=== PATIENT | female | born 1970 | race Caucasian/White ===

== ENCOUNTER → 2018-10-09 | Day surgery (SDC) | payer BC ==
[2018-10-06 14:09] LABS: BASOPHILS # (AUTO) 0.1 (0.0-0.1); BASOPHILS % 1.1 % (0.0-1.0); EOSINOPHILS # (AUTO) 0.2 (0.0-0.4); EOSINOPHILS % 2.7 % (0.0-6.0); HEMATOCRIT 41.6 % (34.2-44.1); HEMOGLOBIN 13.7 g/dL (12.0-16.0); LYMPHOCYTES # (AUTO) 2.1 (1.0-3.2); LYMPHOCYTES % 37.5 % (18.0-39.1); MEAN CORPUSCULAR HEMOGLOBIN 29.4 pg (28-32); MEAN CORPUSCULAR HGB CONC 32.9 g/dL (31-35); MEAN CORPUSCULAR VOLUME 89.3 fL (81-99); MONOCYTES # (AUTO) 0.4 (0.2-0.8); MONOCYTES % 6.5 % (4.4-11.3); NEUTROPHILS # (AUTO) 2.9 (2.1-6.9); PLATELET COUNT 334 x10e3/uL (140-360); RED BLOOD COUNT 4.66 x10e6/uL (3.6-5.1); RED CELL DISTRIBUTION WIDTH 12.6 % (11.7-14.4)
[2018-10-06 14:32] LABS: ANION GAP 11.4 mmol/L (8-16); BLOOD UREA NITROGEN 10 mg/dL (7-26); BUN/CREATININE RATIO 14 (6-25); CALCIUM 9.7 mg/dL (8.4-10.2); CARBON DIOXIDE 28 mmol/L (22-29); CHLORIDE 101 mmol/L (98-107); CREATININE, SERUM 0.74 mg/dL (0.57-1.11); EST GLOMERULAR FILTRATION RATE > 60 ML/MIN (60-); GLUCOSE 124 mg/dL (74-118); POTASSIUM 3.4 mmol/L (3.5-5.1); SODIUM 137 mmol/L (136-145)
--- NOTE | 2018-10-06 15:54 | Diagnostic Imaging Report ---
EXAMINATION: CHEST 2 VIEWS INDICATION: Pre-operative COMPARISON: None FINDINGS: LINES/TUBES:None LUNGS:The lungs are well-inflated. No focal consolidation or pulmonary edema. Mild biapical pleural parenchymal thickening/scarring. PLEURA:No pleural effusion or pneumothorax. MEDIASTINUM:The cardiomediastinal silhouette appears normal in size and shape. BONES/SOFT TISSUES:No acute osseous injury. ABDOMEN:No free air under the diaphragm. IMPRESSION: No focal pneumonia or pulmonary edema. Signed by: Ronaldo Hoffman MD on 10/06/2018 3:50 PM
[~2018-10-09] MED LIST: ACETAMINOPHEN 1000 MG/100 ML 100 ML IV ONE; BUPIVACAINE HCL 0.5% INJ 30 ML VIAL INJ ONE; CEFAZOLIN SOD 1 GM/NS 50ML 100 ML IV ONE; DEXAMETHASONE SOD PHOS INJ 4 MG/ML VIAL ONE; FENTANYL CITRATE/PF 100MCG/2 ML INJ ONE; HYDROCODONE/APAP 5MG-325MG TAB ONE; KETOROLAC TROMETHAMINE 30 MG/ML VIAL ONE; LIDOCAINE HCL 1% 2 ML AMP ONE; LIDOCAINE HCL 2% 2 ML AMP ONE; LIDOCAINE HCL 2% LOCAL INJ 5 ML SDV VIAL INJ ONE; MIDAZOLAM HCL 2 MG/2 ML VIAL ONE; NATURE-THROID65 MG PO; NEOSTIGMINE 1 MG/ML 10ML VIAL ONE; ONDANSETRON HCL INJ 2MG/ML 2ML 2 MG/ML VIAL ONE; PROPOFOL IV EMULSION 10 MG/ML 20 ML VIAL ONE; SEVOFLURANE INHAL SOLN 250 ML PEN BTL ONE
--- OUTSIDE RECORDS SUMMARY | 2018-10-09 05:31 | XMS REPORT | Clinical Summary ---
Author Author [facility] Organization [facility] Address Unknown Phone Unavailable Care Team Providers Care Computer Engineering Technologist Name Role Phone Dinh Tan MD PCP Allergies Comments Active Allergy Reactions Severity Noted Date Liquid bandaid---Blisters Bacitracin Zinc-Polymyxin 07/25/2016 B flushing Sulfur Itching 07/25/2016 Medications No known medications Active Problems Not on file Family History Medical History Relation Name Comments Heart disease Father Relation Name Status Comments Father Alive Social History Date Tobacco Use Types Packs/Day Years Used Quit: 1994 Former Smoker Cigarettes Alcohol Use Drinks/Week oz/Week Comments No Sex Assigned at Date Recorded Not on file Industry Job Start Date Occupation Not on file Not on file Not on file Travel End Travel History Travel Start No recent travel history available. Last Filed Vital Signs Not on file Plan of Treatment Health Maintenance Due Date Last Done Comments BREAST CANCER SCREENING 01/06/2018 COLONOSCOPY SCREENING 01/06/2018 SHINGLES VACCINES (#1) 01/06/2018 INFLUENZA VACCINE 09/24/2018 Results Not on fileafter 10/08/2017 Insurance Type Payer Benefit Subscriber ID Effective Phone Address Plan / Dates Group PPO BCBS BCBS xxxxxxxxxxxx 2006-P CHOICE resent PPO/[employer] PPO (Home) [place] [address] Advance Directives Patient has advance care planning documents on file. For more information, yordan rangel contact: Reyna Islam [address] [place] [id number]
--- OUTSIDE RECORDS SUMMARY | 2018-10-09 05:31 | XMS REPORT ---
Author Author [facility] Address Unknown Phone Unavailable Care Team Providers Care Grass Farmer Name Role Phone ELI CASTELAN Unavailable Unavailable Elliot HERZOG Unavailable Unavailable Problems This patient has no known problems. Allergies, Adverse Reactions, Alerts This patient has no known allergies or adverse reactions. Medications This patient has no known medications. Results Test Description Test Time Test Comments Text Results Atomic Results Result Comments CHEST 2 VIEWS 2018-10-06 15:50:00 [place] [address] Patient Name: ALESSANDRO LEVIN MR #: [id number] : 1970 Age/Sex: 48/F Req #: [id number] Adm Physician: Ordered by: ELI CASTELAN DPM Report #: [id number] Location: OR Room/Bed: Procedure: [id number] DX/CHEST 2 VIEWS Exam Date: 10/06/18 Exam Time: 1405 REPORT STATUS: Signed EXAMINATION: CHEST 2 VIEWS INDICATION: Pre-operative COMPARISON: None FINDINGS: LINES/TUBES:None LUNGS:The lungs are well-inflated. No focal consolidation or pulmonary edema. Mild biapical pleural parenchymal thickening/scarring. PLEURA:No pleural effusion or pneumothorax. MEDIASTINUM:The cardiomediastinal silhouette appears normal in size and shape. BONES/SOFT TISSUES:No acute osseous injury. ABDOMEN:No free air under the diaphragm. IMPRESSION: No focal pneumonia or pulmonary edema. Signed by: Marco Hillman MD on 10/06/2018 3:50 PM Dictated By: MARCO HILLMAN MD 49 Transcribed By: DUSTIN on 10/06/181549 COPY TO: ELI CASTELAN DPFrannie MAMMOGRAPHY DIGITAL SCR BILAT 2017-11-05 13:15:00 [facility] [address] [place] [address] Patient Name: ALESSANDRO LEVIN MR #: [id number] : 1970 Age/Sex: 47/F Req #: [id number] Adm Physician: Ordered by: MANISH HERZOG M.D. Report #: [id number] Location: MAMMO Room/Bed: Procedure: [id number] MG/MAMMOGRAPHY DIGITAL SCR BILAT Exam Date: 11/05/17 Exam Time: 1036 REPORT STATUS: Signed #[id number] - [id number] #BILATERAL DIGITAL SCREENING MAMMOGRAM WITH CAD: 11/05/2017 CLINICAL: Routine screening. Comparison is made to exams dated: 08/26/2016 mammogram, 06/13/2015 mammogram and 05/31/2015 mammogram - [facility]. Current study contains 5 films. The tissue of both breasts is heterogeneously dense. This may lower the sensitivity of mammography. Current study was also evaluated with a Computer Aided Detection (CAD) system. There are benign calcifications in both breasts. There also is a benign cyst in the left breast in upper outer aspect that now measures 1.4 cm (previously measured 3.7 cm) and was confirmed on a prior ultrasound to represent a benign cyst. No significant masses, calcifications, or other findings are seen in either breast. There has been no significant interval change. IMPRESSION: BENIGN There is no mammographic evidence of malignancy. A 1 year screening mammogram is recommended. The patient will be notified by letter of the results. Kavita Reyna Jr., D.O. cw/:11/12/2017 08:58:01 Body Piercer: Flor COBIAN)(Frannie), [facility] letter sent: Compared to Prior B9 Mammogram BI-RADS: 2 Benign Dictated By: KAVITA REYNA DO 7 Transcribed By: OMAYRA on 11/12/17857 COPY TO: MANISH HERZOG M.D.
[2018-10-09 10:50] VITALS: BP 129/91
--- NOTE | 2018-10-09 18:14 | Operative Report ---
DATE OF PROCEDURE: 10/09/2018 SURGEON: Armando Gotti DPM PREOPERATIVE DIAGNOSES: 1. Partially ruptured anterior talofibular ligament, left foot. 2. Partially ruptured peroneal tendon, left foot. 3. 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 POSTOPERATIVE DIAGNOSES: 1. Partially ruptured anterior talofibular ligament, left foot. 2. Partially ruptured peroneal tendon, left foot. 3. 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 TITLE OF THE OPERATION: 1. Repair of the anterior talofibular ligament of the left foot. 2. Repair of the peroneal tendon, left foot. 3. Kenalog injection, 3rd and 4th intermetatarsal spaces of the right foot. ANESTHESIA: General endotracheal. HEMOSTASIS: A left and right thigh tourniquet at 350 mmHg. PROCEDURE IN DETAIL: The patient was taken to the operating room in a mildly sedated state and placed on the operating table in supine position. Following induction of general anesthetic, the left lower extremity was elevated to 60 degrees to exsanguinate before inflating the pneumatic thigh tourniquet to 350 mmHg to create hemostasis. Left lower extremity was placed on the operating table prior to performing following procedure: Procedure #1 is repair of the anterior talofibular ligament of the left foot. A transverse distal incision was placed overlying the anterior talofibular ligament. The segment of rupture was identified. A transverse ligament repair was performed flapping the ligament anteriorward and a Mitek absorbable anchor was installed into the distal fibula. This was then used to create a repair using #2 FiberWire of the ruptured and reapproximated ligament edges, all dystrophic ligament was discarded. The area was irrigated and closed with 3-0 Vicryl, 4-0 nylon. The 2nd incision was then placed for repair of the ruptured peroneal tendon, this was just posterior to the lateral malleolus. The incision was deepened via sharp and blunt dissection down to the retinaculum of the peroneal tendon group. The brevis tendon was identified and the ruptured flattened area was identified, sectioned, and repaired with #2 FiberWire. The area was once again irrigated. A human tissue allograft was placed and injectable form overlying the two repaired areas. A tendon closure of the tendon sheath with 3-0 Vicryl was performed, 4-0 Vicryl subcutaneously on both wounds and 4-0 nylon. The areas of surgery were then blocked with 0.5 Marcaine. No steroid was used. The release of the pneumatic thigh tourniquet showed normal hyperemic flush to all digits of the left foot and the appropriate mildly compressive dressings were applied including application of posterior splint to stabilize the position. The patient tolerated the procedure well and is to return to see me within one week postoperatively. Attention was then directed to the right foot, where the 3rd and 4th intermetatarsal spaces were noted preoperatively to be inflamed from neuroma structures. No tourniquet was used. Both 3rd and 4th intermetatarsal spaces were injected with Kenalog and local. The patient tolerated the procedure well and the appropriate mildly compressive dressing was applied. The patient left the operating room, vital signs stable in apparent satisfactory condition, having tolerated both anesthetic and procedure very well. Return to see me within one week postoperatively. NATALIYA Mata/NIRANJAN /[id number]
== END | disposition home or self-care (01) ==
LOC: OR 05:28
PROVIDERS: ATTEND Podiatrist Foot Surgery
DX: S93.492A Sprain of other ligament of left ankle, initial encounter (principal); S86.312A Strain of muscle(s) and tendon(s) of peroneal muscle group at lower leg level, left leg, initial encounter; G57.61 Lesion of plantar nerve, right lower limb; E03.9 Hypothyroidism, unspecified; X58.XXXA Exposure to other specified factors, initial encounter; Z88.2 Allergy status to sulfonamides; Z01.810 Encounter for preprocedural cardiovascular examination; Z01.812 Encounter for preprocedural laboratory examination; Z01.818 Encounter for other preprocedural examination
CPT/HCPCS: 27696; 36415; 64455; 71046; 80048; 85025; 93005; C1713; J0131; J0690; J1100; J1885; J2001 ×2; J2250; J2405; J2704; J2710; J3010; Q4100; 76000

== ENCOUNTER 2019-09-13 10:50 | Emergency (ER) | payer BC ==
[~2019-09-13] VITALS: Ht 157.5 cm; Wt 59.0 kg
[~2019-09-13 10:50] MED LIST changes: -ACETAMINOPHEN 1000 MG/100 ML 100 ML IV ONE; -BUPIVACAINE HCL 0.5% INJ 30 ML VIAL INJ ONE; -CEFAZOLIN SOD 1 GM/NS 50ML 100 ML IV ONE; -DEXAMETHASONE SOD PHOS INJ 4 MG/ML VIAL ONE; -FENTANYL CITRATE/PF 100MCG/2 ML INJ ONE; -HYDROCODONE/APAP 5MG-325MG TAB ONE; -KETOROLAC TROMETHAMINE 30 MG/ML VIAL ONE; -LIDOCAINE HCL 1% 2 ML AMP ONE; -LIDOCAINE HCL 2% 2 ML AMP ONE; -LIDOCAINE HCL 2% LOCAL INJ 5 ML SDV VIAL INJ ONE; -MIDAZOLAM HCL 2 MG/2 ML VIAL ONE; -NEOSTIGMINE 1 MG/ML 10ML VIAL ONE; -ONDANSETRON HCL INJ 2MG/ML 2ML 2 MG/ML VIAL ONE; -PROPOFOL IV EMULSION 10 MG/ML 20 ML VIAL ONE; -SEVOFLURANE INHAL SOLN 250 ML PEN BTL ONE
[2019-09-13] MEDS ORDERED: NITROGLYCERIN 2% OINT 1 GM PKT TOP STA (11:20)
[2019-09-13] MEDS ORDERED: ASPIRIN 81 MG CHEW TAB PO STA (11:20)
[2019-09-13 11:28] LABS: BASOPHILS # (AUTO) 0.1 (0.0-0.1); BASOPHILS % 1.1 % (0.0-1.0); EOSINOPHILS # (AUTO) 0.3 (0.0-0.4); EOSINOPHILS % 3.4 % (0.0-6.0); HEMATOCRIT 38.9 % (34.2-44.1); HEMOGLOBIN 12.8 g/dL (12.0-16.0); LYMPHOCYTES # (AUTO) 2.5 (1.0-3.2); LYMPHOCYTES % 34.4 % (18.0-39.1); MEAN CORPUSCULAR HEMOGLOBIN 29.2 pg (28-32); MEAN CORPUSCULAR HGB CONC 32.9 g/dL (31-35); MEAN CORPUSCULAR VOLUME 88.6 fL (81-99); MONOCYTES # (AUTO) 0.5 (0.2-0.8); MONOCYTES % 7.2 % (4.4-11.3); NEUTROPHILS # (AUTO) 3.9 (2.1-6.9); NEUTROPHILS % 53.6 % (38.7-80.0); PLATELET COUNT 384 x10e3/uL (140-360); RED BLOOD COUNT 4.39 x10e6/uL (3.6-5.1); RED CELL DISTRIBUTION WIDTH 12.8 % (11.7-14.4)
--- NOTE | 2019-09-13 11:35 | Emergency Department Note ---
History of Present Illnes History of Present Illness Chief Complaint: Chest Pain History of Present Illness This is a 49 year old female arrived to the ED with complaints of left -sided chest pain that wraps around her back, patient states she feels like she is having a heart attack is very tearful on exam . Historian: Patient Arrival Mode: Car Onset (how long ago): hour(s) Radiation: Reports abdomen Severity: mild Onset quality: sudden Duration (how long): hour(s) Timing of current episode: constant Chronicity: new Relieving factors: none Past Medical/Family History Physician Review I have reviewed the patient's past medical and family history. Any updates have been documented here. Past Medical History Recent Fever: No Clinical Suspicion of Infectio: No New/Unexplained Change in Ment: No Past Medical History: Hyperlipedemia Social History Smoking Cessation: Never Smoker Counseling Performed: No Review of Systems Review of Systems Constitutional: Reports no symptoms EENTM: Reports no symptoms Cardiovascular: Reports as per HPI, Reports chest pain Respiratory: Reports no symptoms Gastrointestinal: Reports no symptoms Genitourinary: Reports no symptoms Musculoskeletal: Reports no symptoms Integumentary: Reports no symptoms Neurological: Reports no symptoms Psychological: Reports no symptoms Endocrine: Reports no symptoms Hematological/Lymphatic: Reports no symptoms Physical Exam Related Data Allergies: Uncoded Allergies: SULFA (Allergy, Unknown, 10/06/18) Vital signs reviewed: Yes Physical Exam CONSTITUTIONAL Constitutional: Present well-developed, Present well-nourished HENT HENT: Present normocephalic, Present atraumatic, Present oropharynx clear/moist, Present nose normal HENT L/R: Present left ext ear normal, Present right ext ear normal EYES Eyes: Reports PERRL, Reports conjunctivae normal NECK Neck: Present ROM normal PULMONARY Pulmonary: Present effort normal, Present breath sounds normal CARDIOVASCULAR Cardiovascular: Present regular rhythm, Present heart sounds normal, Present capillary refill normal, Present normal rate GASTROINTESTINAL Abdominal: Present soft, Present nontender, Present bowel sounds normal GENITOURINARY Genitourinary: Present exam deferred SKIN Skin: Present warm, Present dry MUSCULOSKELETAL Musculoskeletal: Present ROM normal NEUROLOGICAL Neurological: Present alert, Present oriented x 3, Present no gross motor or sensory deficits PSYCHOLOGICAL Psychological: Present mood/affect normal, Present judgement normal Results Laboratory Lab results reviewed: Yes Imaging Imaging results reviewed: Yes Clinical Decision Tools HEART Score HEART Score: HEART Score Response (Comments) Value History Slightly suspicious 0 EKG Normal 0 Age 45 - 65 1 Risk factors 1 or 2 risk factors 1 Troponin < or = to normal limit Total 2 Assessment & Plan Medical Decision Making MDM The patient presented with chest pain of uncertain etiology. Based on their history, lab analysis, EKG (which showed no evidence of ischemia or infarction), and imaging, in addition to the patient's physical exam, I see no evidence at this time for a malignant etiology for the patient's chest pain. There is no acute evidence for pulmonary embolus, acute myocardial infarction, pneumothorax, esophageal rupture, cardiac tamponade, thoracic artery dissection, or any other emergent cardiac, pulmonary or aortic pathology at this time. [Based on the nature and long duration of the patient's pain, paucity of EKG findings, and normal cardiac enzymatic blood analysis, acute coronary syndrome is exceedingly unlikely. It is highly likely that cardiac enzymes would be abnormal in chest pain of this duration if their chest pain was attributable to ACS.] [The patient also has very low risk for coronary artery disease based on their risk factor profile with no substantial risk factors (Age>65, >3 CAD risk factors -- family history of CAD, hypertension, hypercholesterolemia, diabetes, or current smoker, known CAD as defined by >50% stenosis, aspirin use in the past 7 days, severe angina having more than 2 episodes in the past 24 hours, ST changes >0.5mm, or positive cardiac biomarker).] HEART score _0-3. This patient may require cardiac stress testing on an outpatient basis and arrangements for this may be made during their follow-up visit with their primary care physician. The patient understands that at this time there is no evidence for a more malignant underlying process, but the patient also understands that early in the process of an illness, an emergency department workup can be falsely reassuring. Routine discharge counseling was given to the patient and the patient understands that worsening, changing, or persistent symptoms should prompt an immediate call or follow up with their primary physician or the emergency department immediately. The importance of close follow up was also discussed with the patient. Assessment & Plan Final Impression: (1) Chest pain Depart Disposition: HOME, SELF-assisted Meds Reported Medications Thyroid,Pork (NATURE-THROID) 65 Mg Tablet, 1 TAB PO DAILY 10/06/18 DONNA LYNN DO Sep 13, 2019 11:35
[2019-09-13 11:44] LABS: INR 0.86; PROTHROMBIN TIME 12.2 seconds (11.9-14.5)
[2019-09-13 11:45] LABS: PARTIAL THROMBOPLASTIN TIME 30.4 seconds (23.8-35.5)
--- NOTE | 2019-09-13 11:45 | NUR ---
PATIENT ANXIOUS 2ND TO CHEST PAIN AND HER FAMILY HX OF CHEST PAIN. EMOTIONAL SUPPORT GIVEN. PATIENTS PHONE CONTINUES TO GO OFF WITH FAMILY MEMBERS CALLING WITH CONCERN ALSO INCREASING HER ANXIETY
[2019-09-13 11:52] LABS: ALANINE AMINOTRANSFERASE 17 IU/L (0-55); ALBUMIN/GLOBULIN RATIO 1.2 (0.8-2.0); ALKALINE PHOSPHATASE 69 IU/L (40-150); ANION GAP 11.9 mmol/L (8-16); BLOOD UREA NITROGEN 18 mg/dL (7-26); BUN/CREATININE RATIO 22 (6-25); CARBON DIOXIDE 29 mmol/L (22-29); CHLORIDE 105 mmol/L (98-107); CREATINE KINASE 118 IU/L (29-168); CREATININE, SERUM 0.82 mg/dL (0.57-1.11); EST GLOMERULAR FILTRATION RATE > 60 ML/MIN (60-); GLUCOSE 88 mg/dL (74-118); POTASSIUM 3.9 mmol/L (3.5-5.1); SODIUM 142 mmol/L (136-145)
--- NOTE | 2019-09-13 13:13 | Diagnostic Imaging Report ---
EXAMINATION: CHEST SINGLE (PORTABLE) INDICATION: Chest pain COMPARISON: Chest radiograph of 10/06/2018 FINDINGS: LINES/TUBES:None LUNGS:The lungs are moderately inflated. Mild bibasilar subsegmental atelectasis. No focal consolidation. PLEURA:No pleural effusion or pneumothorax. MEDIASTINUM:The cardiomediastinal silhouette appears normal in size and shape. BONES/SOFT TISSUES:No acute osseous injury. ABDOMEN:No free air under the diaphragm. IMPRESSION: Mild bibasilar subsegmental atelectasis. No focal pneumonia or pulmonary edema. Signed by: Ronaldo Hoffman MD on 09/13/2019 1:09 PM
--- NOTE | 2019-09-13 15:16 | NUR ---
REPEAT ENZYMES COMPLETED
[2019-09-13] MEDS ORDERED: ASPIRIN 81 MG CHEW TAB PO ONE (15:30)
[2019-09-13 15:46] LABS: CREATINE KINASE MB 1.4 ng/mL (0-5.0)
== END 2019-09-13 16:49 | disposition home or self-care (01) ==
LOC: ER 10:56
DX: R07.9 Chest pain, unspecified (principal); E78.5 Hyperlipidemia, unspecified
CPT/HCPCS: 36415; 71045; 80053; 82550; 82553; 83880; 84484; 85025; 85610; 85730; 93005; 99284

== ENCOUNTER → 2021-01-24 | Outpatient (CLI) | payer BC | LOC: MAMMO 13:54 | PROVIDERS: ATTEND Obstetrics & Gynecology | DX: Z12.31 Encounter for screening mammogram for malignant neoplasm of breast (principal) | CPT/HCPCS: 77067 ==

== ENCOUNTER → 2024-06-07 | Outpatient (REF) | payer OTHER | LOC: MAMMO 15:17 | PROVIDERS: ATTEND Obstetrics & Gynecology | DX: Z12.31 Encounter for screening mammogram for malignant neoplasm of breast (principal); Z13.820 Encounter for screening for osteoporosis | CPT/HCPCS: 77067; 77080 ==